=== PATIENT | female | born 1930 | race Caucasian/White ===

== ENCOUNTER 2016-08-22 12:09 | Emergency (ER) | payer OTHER, MEDICARE ==
[~2016-08-22] VITALS: Ht 152.4 cm; Wt 77.1 kg
[~2016-08-22 12:09] MED LIST: ANASTROZOLE1 MG PO; ANTIVERT 12.512.5 MG PO; ATORVASTATIN CA20 MG PO; AUGMENTIN 500M500 MG PO; BUFFERIN LOW DO81 MG PO; ELIQUIS5 MG PO; FISH OIL CONC1000 MG PO; GLIMEPIRIDE4 MG PO; JANUVIA 100MG100 MG PO; LEVOTHYROXIN0.075 MG PO; LEVOTHYROXINE0.1 MG PO; LISINOPRIL10 MG PO; LISINOPRIL20 MG PO; LOPRESSOR 25MG25 MG PO; LOPRESSOR50 MG PO
--- NOTE | 2016-08-22 13:29 | ED CARDIAC/CP/PALPITATIONS ---
History of Present Illness General Chief Complaint: Chest Pain Stated Complaint: C/P Source: patient Exam Limitations: no limitations Allergies Coded Allergies: NO KNOWN ALLERGIES (08/22/16) Reconcile Medications Anastrozole 1 MG TAB 1 TAB PO DAILY CANCER (Reported) Apixaban (Eliquis) 5 MG TAB 1 TAB PO BID BLOOD THINNER (Reported) Aspirin (Children's Aspirin) 81 MG TAB 1 TAB PO DAILY HEART HEALTH (Reported) Atorvastatin Calcium (Lipitor) 20 MG TAB 1 TAB PO DAILY CHOLESTEROL (Reported ) Cyclobenzaprine HCl 5 MG TABLET 1 TAB PO DAILY PRN MUSCLE SPASMS Famciclovir 500 MG TABLET 1 TAB PO TID shingles Fish Oil (Fish Oil Concentrate) 1,000 MG SGL 1 CAP PO DAILY SUPPLEMENT ( Reported) Glimepiride 4 MG TAB 1 TAB PO BID DIABETES (Reported) Levothyroxine Sodium 100 MCG TABLET 1 TAB PO DAILY THYROID HEALTH (Reported) Lisinopril 20 MG TABLET 1 TAB PO DAILY HIGH BLOOD PRESSURE (Reported) Meloxicam (Mobic) 15 MG TABLET 1 TAB PO DAILY PRN pain and inflammation Metoprolol Tartrate 25 MG TABLET 1 TAB PO D HIGH BLOOD PRESSURE (Reported) Sitagliptin Phosphate (Januvia) 100 MG TAB 1 TAB PO DAILY DIABETES (Reported) Triage Note: TRIAGE: PT TO ER C/C PAIN TO L CHEST UNDER BREAST RADIATING AROUND TO THE BACK, WORSE WITH MOVEMENT. IMPROVED INITIALLY WITH HEATING PAD. TOOK TYLENOL WITH NO RELIEF. ONSET LAST NIGHT. DENIES ANY INJURY OR PHYSICAL ACTIVITY THAT MIGHT HAVE CAUSED SAME. DENIES ANY NEW RESPIRATORY S/S BUT STATES "I'M ALWAYS SHORT OF BREATH". -N/V. STATES FELT A LITTLE CLAMMY DURING THE NIGHT BUT NOT AT PRESENT. HAD EKG DONE IN [place] PRIOR TO TRIAGE. Triage Nurses Notes Reviewed? yes HPI: THIS PATIENT is an 86-year-old female with past medical history including left breast cancer status post left partial mastectomy, brain tumor status post radiation which has not been biopsied and today for evaluation of left-sided chest pain. The patient reported the pain began last night while she was sitting. She reported that at first the pain was constant and sharp. She reported that the pain is an 8 out of 10. She took Tylenol and use a heating pad thinking that this was a muscle pull. Those interventions did mildly help her symptoms. Today she reported that the pain has been intermittent, worse with deep breaths, palpation, and certain movements. She was advised by her insurance company to come to the emergency department to rule out any cardiac pathology. This patient is currently on ELAQUIS. She denied a history of any blood clots. The patient denied any headaches, jaw pain, arm pain, numbness or tingling in her extremities, difficulty breathing, abdominal pain, nausea, vomiting, constipation, diarrhea, back pain, fevers, or chills. (DARY JOHNSON,LALO) Vital Signs & Intake/Output Vital Signs & Intake/Output Vital Signs Date Time Temp Pulse Resp B/P Pulse O2 O2 Flow FiO2 Ox Delivery Rate 08/22 1825 96.9 89 18 170/81 99 Room Air 08/22 1600 79 18 165/74 100 Room Air 08/22 1434 97.8 62 18 171/78 96 08/22 1351 97 Room Air ED Intake and Output 08/23 0000 08/22 1200 Intake Total 0 Output Total Balance 0 Intake, IV 0 Patient 170 lb Weight Past History Travel History Traveled to [place] past 21 day No Medical History Any Pertinent Medical History? 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" APPLICATIONS PROGRAMMER ANALYST/Reproductive: NONE Other Medical Hx: Non-Hodgkin's lymphoma DIABETES (250.00) breast cancer HYPOTHYROIDISM (244.9) Recurrent bladder infections Total abdominal hysterectomy with bilateral salpingo-oophorectomy for uterine fibroids HISTORY OF TONSILLECTOMY (V45.89) macular degeneration ARTHRITIS (716.90) Right total knee replacement DYSLIPIDEMIA (272.4) HISTORY OF CHOLECYSTECTOMY (V45.79) valvular heart disease SHOULDER PAIN (719.41) HYPERTENSION (401.9) coronary artery disease AF (ATRIAL FIBRILLATION) (427.31) Right total knee replacement Total abdominal hysterectomy with bilateral salpingo-oophorectomy for uterine fibroids Cholecystectomy Tonsillectomy History of MRSA: No History of VRE: No History of CDIFF: No Pneumonia Vaccine: 08/09/14 Influenza Vaccine: 05/18/15 Surgical History Surgical History: cholecystectomy, right total knee replacement NITZA with BSO for uterine fibroids tonsillectomy Psychosocial History Who do you live with Son Services at Home None What is your primary language Urdu Tobacco Use: Quit >30 days ago ETOH Use: denies use Illicit Drug Use: denies illicit drug use Family History Hx Contributory? No (LALO FOOTE PA-C) Review of Systems Review of Systems Constitutional: Reports: no symptoms. EENTM: Reports: no symptoms. Respiratory: Reports: no symptoms. Cardiovascular: Reports: see HPI. GI: Reports: no symptoms. Genitourinary: Reports: no symptoms. Musculoskeletal: Reports: see HPI. Skin: Reports: no symptoms. Neurological/Psychological: Reports: no symptoms. All Other Systems: Reviewed and Negative (LALO FOOTE PA-C) Physical Exam Physical Exam Cardiovascular: regular rate/rhythm, normal peripheral pulses, NO MURMURS, RUBS, OR GALLOPS. nO jvd. nO CAROTID BRUITS Comments: Well-developed well-nourished person in no acute distress HEENT: Normal EENT exam, moist mucous membranes Neck: Supple, full range of motion Back: Normal inspection Respiratory: No respiratory distress. Speaking in full sentences. Lungs clear to auscultation bilaterally with no wheezes, rales, or rhonchi. No diminished breath sounds. Tenderness to palpation over the fifth and sixth intercostal spaces on the left mid axillary line Abdomen: Soft, nontender and nondistended with normoactive bowel sounds Extremity: No edema, no calf tenderness to palpation, normal and equal pulses. Neuro: Alert oriented x3, cranial nerves II through XII grossly intact. Skin: No appreciable rash on exposed skin, skin is warm and dry. Psych: Mood and affect is normal Core Measures ACS in differential dx? Yes Severe Sepsis Present: No Septic Shock Present: No (LALO FOOTE PA-C) Progress Differential Diagnosis: AMI, aortic dissection, atrial fibrillation, cholecystitis, CHF/pulm edema, hyperkalemia, hypovolemia, hyperventilation, musculoskeletal pain, myocarditis, pancreatitis, pericarditis, pneumonia, pneumothorax, PSVT, pulmonary embolism, PUD/GERD, PVCs/PACs, sepsis, unstable angina Diagnostic Imaging: Viewed by Me: Radiology Read. Discussed w/RAD: Radiology Read. CXR Impression: PATIENT: JOSÉ MIGUEL BRAR PRESENT AGE: 86 PATIENT ACCOUNT NO: [id number] : 31 LOCATION: [facility] ORDERING PHYSICIAN: LALO FOOTE PA-C SERVICE DATE: 08/22/164698 EXAM TYPE: RAD - XRY- PORTABLE CHEST XRAY EXAMINATION: XR PORTABLE CHEST CLINICAL INFORMATION: Chest pain. Evaluate for cardiomegaly. COMPARISON: CXR from 02/12/2015 and PET-CT from 05/26/2016. TECHNIQUE: Portable view of the chest was obtained. FINDINGS: Cardiac silhouette is normal in size. There is no acute interstitial pulmonary edema, pleural effusion or pneumothorax. There is atherosclerotic calcification of the aorta. Surgical clips are present within the right axilla and the subtle, asymmetric opacity of the lateral right hemithorax likely corresponds to the mild fibrotic pleural thickening overlying the right upper lobe seen on the chest CT exam. No acute skeletal findings. IMPRESSION: No evidence of cardiomegaly or congestive heart failure. No acute cardiopulmonary abnormalities compared to 02/12/2015 DICTATED BY: HALLEY GARCIA MD DATE/TIME DICTATED:1401 ACADEMIC COUNSELOR:DESMOND DATE/TIME TRANSCRIBED:08/22/161401 CONFIDENTIAL, DO NOT COPY WITHOUT APPROPRIATE AUTHORIZATION. <Electronically signed in Other Vendor System> SIGNED BY: HALLEY GARCIA MD 08/22/16 1412 Initial ED EKG: normal axis, normal intervals, normal sinus rhythm, FIRST DEGREE AV BLOCK, 59 BPM Repeat EKG: unchanged (60bpm) Comments: 08/22/2016 2:58:03 PM: I was at the patient's bedside to update her on her laboratory studies. Her son is currently at the bedside. She does have a urinary tract infection which she reported, "I am prone to." I discussed this patient her options. I discussed that I believe that this is likely a muscular strain. However, I did report that because she is having chest pain I do recommend staying for a second troponin level to rule out cardiac pathology. She agreed to stay for that second level. 08/22/2016 6:40:03 PM: Dr. Cook is currently at the patient's bedside for face-to -face evaluation. Second troponin not elevated. Repeat EKG unchanged from prior. This patient's pain is reproducible with palpation over her area of specified pain. Likely musculoskeletal in nature. Discussed the patient Dr. Cook who is in agreement with the plan to let this patient be discharged home with outpatient management of her symptoms and primary care physician follow-up. (DARY JOHNSON,LALO) Plan of Care: Orders Procedure Date/time Status Heart Healthy Diet 08/23 B Active TROPONIN LEVEL 08/22 1731 Complete EKG 08/22 1731 Active URINALYSIS 08/22 1406 Complete Add-on Test (ER Only) 08/22 1347 Active D-DIMER 08/22 1334 Complete TROPONIN LEVEL 08/22 1305 Complete MAGNESIUM 08/22 1305 Complete COMPREHENSIVE METABOLIC PANEL 08/22 1305 Complete CBC WITHOUT DIFFERENTIAL 08/22 1305 Complete Laboratory Tests 08/22/16 1801: Troponin I < 0.01 08/22/16 1407: Urine Color YEL, Urine Clarity HAZY H, Urine pH 6.0, Ur Specific [place] 1.010, Urine Protein NEG, Urine Ketones NEG, Urine Nitrite POS H, Urine Bilirubin NEG, Urine Urobilinogen 0.2, Ur Leukocyte Esterase SMALL H, Ur Microscopic SEDIMENT EXAMINED, Urine RBC RARE, Urine WBC 3-5 H, Ur Epithelial Cells MOD H, Urine Hemoglobin NEG, Urine Glucose NEG 08/22/16 1334: Anion Gap 16, Estimated GFR 39 L, BUN/Creatinine Ratio 30.8 H, Glucose 133 H, Calcium 10.2, Magnesium 1.7, Total Bilirubin 0.6, AST 18, ALT 29, Alkaline Phosphatase 112, Troponin I < 0.01, Total Protein 7.4, Albumin 3.9, Globulin 3.5 , Albumin/Globulin Ratio 1.1, D-Dimer < 200, CBC w Diff NO MAN DIFF REQ, RBC 4.63, MCV 90.4, MCH 29.3, RDW 13.8, MPV 8.4, Gran % 54.1, Lymphocytes % 26.7, Monocytes % 9.7 H, Eosinophils % 8.8 H, Basophils % 0.7, Absolute Granulocytes 6.5, Absolute Lymphocytes 3.2, Absolute Monocytes 1.2 H, Absolute Eosinophils 1.1, Absolute Basophils 0.1, PUBS MCHC 32.4 L Departure Departure Disposition: HOME OR SELF CARE Condition: Stable Clinical Impression Primary Impression: Musculoskeletal pain Referrals: DIEGO MANN,MICHELINE Pena (PCP/Family) Additional Instructions: Take Flexeril as prescribed for muscle relaxation. Take low back as prescribed for pain and inflammation. Gentle stretching. You may apply ice or heat to the affected areas needed. Avoid any heavy lifting or strenuous activity. Please call to make a follow-up appointment with your primary care physician. Return for any worsening symptoms or concerns. Departure Forms: Customer Survey General Discharge Information Prescriptions: Current Visit Scripts Famciclovir 1 TAB PO TID #21 TAB Meloxicam (Mobic) 1 TAB PO DAILY PRN pain and inflammation #7 TAB Cyclobenzaprine HCl 1 TAB PO DAILY PRN MUSCLE SPASMS #7 TAB (LALO FOOTE PA-C) PA/LAMBSKIN TRIMMER Co-Sign Statement Statement: ED Attending supervision documentation- [x] I saw and evaluated the patient. I have also reviewed all the pertinent lab results and diagnostic results. I agree with the findings and the plan of care as documented in the PA's/LAMBSKIN TRIMMER's documentation. [] I have reviewed the ED Record and agree with the PA's/LAMBSKIN TRIMMER's documentation. [] Additions or exceptions (if any) to the PAs/LAMBSKIN TRIMMER's note and plan are summarized below: [] (DOUGLAS MANN,MARI Merrill) Critical Care Note Critical Care Note Critical Care Time: non-applicable (LALO FOOTE PA-C)
[2016-08-22 13:59] LABS: ABSOLUTE BASOPHIL COUNT 0.1 /CUMM (0.0-0.2); ABSOLUTE EOSINOPHIL COUNT 1.1 /CUMM (0.0-0.7); ABSOLUTE GRANULOCYTE CT 6.5 /CUMM (1.4-6.5); ABSOLUTE LYMPH COUNT 3.2 /CUMM (1.2-3.4); ABSOLUTE MONOCYTE COUNT 1.2 /CUMM (0.10-0.60); BASOPHIL % 0.7 % (0.0-2.0); EOSINOPHIL % 8.8 % (0-5); GRANULOCYTE % 54.1 % (42.2-75.2); HEMATOCRIT 41.9 % (37-47); MEAN CORPUSCULAR HGB 29.3 PG (27.0-31.0); MEAN CORPUSCULAR HGB CONC 32.4 G/DL (33.0-37.0); MEAN CORPUSCULAR VOLUME 90.4 FL (81.0-99.0); MEAN PLATELET VOLUME 8.4 FL (7.4-10.4); PLATELET COUNT 322 /CUMM (130-400); RBC DISTRIBUTION WIDTH 13.8 % (11.5-14.5); RED BLOOD CELL CT 4.63 /CUMM (4.20-5.40)
--- NOTE | 2016-08-22 14:12 | RADIOLOGY REPORT ---
EXAMINATION: XR PORTABLE CHEST CLINICAL INFORMATION: Chest pain. Evaluate for cardiomegaly. COMPARISON: CXR from 02/12/2015 and PET-CT from 05/26/2016. TECHNIQUE: Portable view of the chest was obtained. FINDINGS: Cardiac silhouette is normal in size. There is no acute interstitial pulmonary edema, pleural effusion or pneumothorax. There is atherosclerotic calcification of the aorta. Surgical clips are present within the right axilla and the subtle, asymmetric opacity of the lateral right hemithorax likely corresponds to the mild fibrotic pleural thickening overlying the right upper lobe seen on the chest CT exam. No acute skeletal findings. IMPRESSION: No evidence of cardiomegaly or congestive heart failure. No acute cardiopulmonary abnormalities compared to 02/12/2015
[2016-08-22] MEDS ORDERED: LISINOPRIL20 M1 PO (14:14)
[2016-08-22] MEDS ORDERED: METOPROLOL TART25 M1 PO (14:15)
[2016-08-22] MEDS ORDERED: LEVOTHYROXINE100 MC1 PO (14:17)
[2016-08-22 18:25] VITALS: BP 170/81
[2016-08-22] MEDS ORDERED: CYCLOBENZAPRINE5 M2 PO (18:42)
[2016-08-22] MEDS ORDERED: MOBIC15 M1 PO (18:42)
[2016-08-22] MEDS ORDERED: FAMCICLOVIR500 M1 PO (18:50)
== END 2016-08-22 18:53 ==
LOC: ERH 12:09
PROVIDERS: Physician Assistant
DX: R07.89 Other chest pain (principal)
CPT/HCPCS: 81001; 93005; 93010